=== PATIENT | female | born 1965 | race Caucasian/White ===

== ENCOUNTER → 2020-05-31 | Outpatient (REF) | payer OTHER | LOC: M LAB REF 16:17 | PROVIDERS: ATTEND Physician Assistant Medical | DX: R53.83 Other fatigue (principal); M25.579 Pain in unspecified ankle and joints of unspecified foot ==

== ENCOUNTER → 2021-01-18 | Outpatient (CLI) | payer BC, OTHER | LOC: M LABSMTC 11:16 | PROVIDERS: ATTEND Pediatrics | DX: Z11.52 Encounter for screening for COVID-19 (principal) | CPT/HCPCS: C9803; U0003 ==

== ENCOUNTER → 2021-01-23 | Outpatient (REF) | payer OTHER, BC | LOC: M LAB REF 12:25 | PROVIDERS: ATTEND Physician Assistant | DX: R05.9 Cough, unspecified (principal) ==

== ENCOUNTER → 2022-08-26 | Outpatient (CLI) | payer OTHER, BC | LOC: M RAD 06:57 | PROVIDERS: ATTEND Physician Assistant Medical | DX: R10.13 Epigastric pain (principal) ==

== ENCOUNTER → 2023-04-07 | Outpatient (CLI) | payer BC, OTHER | LOC: M RAD 08:17 | PROVIDERS: ATTEND Nurse Practitioner Adult Health | DX: R10.13 Epigastric pain (principal) ==